=== PATIENT | female | born 1940 | race Caucasian/White ===

== ENCOUNTER 2019-08-21 09:26 | Emergency (ER) | payer MEDICARE, OTHER ==
[~2019-08-21] VITALS: Ht 170.2 cm; Wt 77.8 kg
[~2019-08-21 09:26] MED LIST: LIDO700A32 TOP
[2019-08-21] MEDS ORDERED: ondansetron/PF 4mg/2ml inj IV ONE (10:10)
[2019-08-21] MEDS ORDERED: normal saline 1000ML IV soln IVB ONE (10:10)
[2019-08-21 10:14] LABS: BASOPHILS % (AUTO) 0.6 % (0-1); EOSINOPHILS # (AUTO) 0.1 X10'3 (0-0.9); EOSINOPHILS % (AUTO) 3.2 % (0-6); HEMATOCRIT 45.1 % (35.0-45.0); HEMOGLOBIN 15.5 g/dl (12.0-16.0); LYMPHOCYTES # (AUTO) 0.9 X10'3 (1.1-4.8); LYMPHOCYTES % (AUTO) 23.9 % (21-51); MEAN CORPUSCULAR HEMOGLOBIN 33.7 PG (27.0-31.0); MEAN CORPUSCULAR HGB CONC 34.4 g/dL (33.0-36.5); MEAN CORPUSCULAR VOLUME 97.8 FL (78-98); MEAN PLATELET VOLUME 9.1 FL (7.4-10.4); MONOCYTES # (AUTO) 0.6 X10'3 (0-0.9); MONOCYTES % (AUTO) 15.5 % (2-12); NEUTROPHILS # (AUTO) 2.3 X10'3 (1.8-7.7); NEUTROPHILS % (AUTO) 56.8 % (42-75); PLATELET COUNT 148 X10'3 (140-440); RED BLOOD COUNT 4.61 X10'6 (4.20-5.60); RED CELL DISTRIBUTION WIDTH 13.4 % (11.5-14.5)
[2019-08-21 10:28] LABS: ALANINE AMINOTRANSFERASE 22 U/L (12-78); ALBUMIN/GLOBULIN RATIO 0.8 (1.1-1.5); ALKALINE PHOSPHATASE 96 IU/L (46-116); ANION GAP 8 (8-16); ASPARTATE AMINO TRANSFERASE 23 U/L (10-37); BLOOD UREA NITROGEN 8 MG/DL (7-18); BUN/CREATININE RATIO 8.8 (6.6-38.0); CALCIUM 8.7 MG/DL (8.5-10.1); CHLORIDE 107 MMOL/L (99-107); CREATININE 0.91 MG/DL (0.40-0.90); GLUCOSE 166 MG/DL (70-104); LIPASE 123 U/L (73-393); POTASSIUM 4.4 MMOL/L (3.5-5.1); SODIUM 143 MMOL/L (135-145); TOTAL CARBON DIOXIDE 27.9 MMOL/L (24-32); TOTAL PROTEIN 6.9 G/DL (6.4-8.2); eGFR 60 ML/MIN
[2019-08-21] MEDS ORDERED: LIDOcaine Viscous 15ml cup PO ONE (11:10)
[2019-08-21] MEDS ORDERED: mag hydrox/Alum hydrox/simeth 30ml oral suspension PO ONE (11:10)
[2019-08-21 11:47] VITALS: BP 133/67
[2019-08-21 12:20] LABS: ANISOCYTOSIS 1+; PLATELET ESTIMATE NORMAL; TOTAL CELLS COUNTED 100
[2019-08-21] MEDS ORDERED: ONDA4TAB12 PO (12:22)
[2019-08-21] MEDS ORDERED: OMEP40CA13 PO (12:23)
== END 2019-08-21 12:32 | disposition home or self-care (01) ==
LOC: ER 09:27
DX: R10.13 Epigastric pain (principal); R11.2 Nausea with vomiting, unspecified; Z88.6 Allergy status to analgesic agent; Z88.5 Allergy status to narcotic agent
CPT/HCPCS: 36415; 80053; 83690; 85025; 96361; 96374; 99284; J2405; J7030

== ENCOUNTER 2019-08-24 08:25 | Emergency (ER) | payer MEDICARE, OTHER ==
[~2019-08-24] VITALS: Ht 175.3 cm; Wt 90.0 kg
[~2019-08-24 08:25] MED LIST changes: -LIDO700A32 TOP; +OMEP40CA13 PO; +ONDA4TAB12 PO
[2019-08-24] MEDS ORDERED: mupirocin 2% ointment 22GM TP STA (08:49)
[2019-08-24] MEDS ORDERED: DOXY100C2 PO (09:10)
[2019-08-24] MEDS ORDERED: MUPI22OI30 TOP (09:10)
[2019-08-24 10:13] VITALS: BP 139/100
== END 2019-08-24 10:14 | disposition home or self-care (01) ==
LOC: ER 08:26
DX: E11.628 Type 2 diabetes mellitus with other skin complications (principal); L03.031 Cellulitis of right toe; Z60.2 Problems related to living alone; Z88.6 Allergy status to analgesic agent; Z88.1 Allergy status to other antibiotic agents; Z79.899 Other long term (current) drug therapy
CPT/HCPCS: 73660; 82948; 99284

== ENCOUNTER 2019-09-29 11:48 | Day surgery (SDC) | payer MEDICARE, OTHER ==
[2019-09-22 15:27] LABS: BASOPHILS # (AUTO) 0.1 X10'3 (0-0.2); EOSINOPHILS # (AUTO) 0.2 X10'3 (0-0.9); LYMPHOCYTES # (AUTO) 1.2 X10'3 (1.1-4.8); MEAN CORPUSCULAR HEMOGLOBIN 33.7 PG (27.0-31.0); MEAN CORPUSCULAR HGB CONC 34.4 g/dL (33.0-36.5); MEAN CORPUSCULAR VOLUME 97.8 FL (78-98); MEAN PLATELET VOLUME 9.6 FL (7.4-10.4); MONOCYTES # (AUTO) 0.9 X10'3 (0-0.9); MONOCYTES % (AUTO) 13.1 % (2-12); NEUTROPHILS # (AUTO) 4.3 X10'3 (1.8-7.7); NEUTROPHILS % (AUTO) 64.9 % (42-75); PRE OP HEMATOCRIT 44.1 % (35.0-45.0); PRE OP HEMOGLOBIN 15.2 g/dL (12.0-16.0); PRE OP PLATELET COUNT 199 X10'3 (140-440); RED BLOOD COUNT 4.51 X10'6 (4.20-5.60); RED CELL DISTRIBUTION WIDTH 14.2 % (11.5-14.5)
[2019-09-22 15:40] LABS: PRE OP PROTIME 17.5 SECONDS (9.0-12.0)
[2019-09-22 15:43] LABS: ALBUMIN 2.8 G/DL (3.4-5.0); ALBUMIN/GLOBULIN RATIO 0.8 (1.1-1.5); ALKALINE PHOSPHATASE 106 IU/L (46-116); BLOOD UREA NITROGEN 14 MG/DL (7-18); BUN/CREATININE RATIO 14.4 (6.6-38.0); CALCIUM 8.5 MG/DL (8.5-10.1); CHLORIDE 104 MMOL/L (99-107); CREATININE 0.97 MG/DL (0.40-0.90); PRE OP ALT 17 U/L (30-65); PRE OP ANION GAP 8 (8-16); PRE OP AST 27 U/L (10-37); PRE OP BILIRUB, TOTAL 0.8 MG/DL (0.0-1.0); PRE OP POTASSIUM 4.1 MMOL/L (3.4-5.1); PRE OP SODIUM 137 MMOL/L (135-145); TOTAL CARBON DIOXIDE 24.7 MMOL/L (24-32); TOTAL PROTEIN 6.5 G/DL (6.4-8.2); eGFR 56 ML/MIN
[2019-09-22 15:45] LABS: PRE OP GLUCOSE 260 MG/DL (70-104); PRE OP INR 1.8 INR
[~2019-09-29] VITALS: Ht 170.2 cm; Wt 77.7 kg
[2019-09-29] VITALS (8 sets, daily range): BP systolic 130–155; BP diastolic 70–96
[~2019-09-29 11:48] MED LIST changes: +ALPR-624 PO; +COU4T PO; +EXEN2PEN SQ; +GABA-530 PO; +LACT10SO PO; +LANTUS SQ; -OMEP40CA13 PO; -ONDA4TAB12 PO; +ONDA8TAB6 PO; +PANT-47 PO; +PROC-8 PO; +RIFA550T PO; +SPIR25TA5 PO; +TRAM50TA2 PO; +VORT20TA PO; +ceFOXitin 2 GM ADDVANTGE BAG 50 ML IV ONE; +famotidine 20mg tablet PO ONE; +ringers solution, lacted 1,000 ML IV SCH
[2019-09-29] MEDS ORDERED: LIDOcaine 1% 30ml preserv. free vial ONE (12:36)
[2019-09-29] MEDS ORDERED: BUPIVAcaine 0.5% inj/PF 30 ML ONE (12:36)
[2019-09-29] MEDS ORDERED: bacitracin 15gm ointment TP ONE (12:36)
[2019-09-29] MEDS ORDERED: ceFAZolin 1000mg inj ONE (12:36)
[2019-09-29] MEDS ORDERED: epiNEPHrine 1 mg/ml inj ONE (12:49)
[2019-09-29] MEDS ORDERED: sevoflurane 250ml liquid IH ONE (14:34)
[2019-09-29] MEDS ORDERED: fentaNYL/PF 50MCG/1 ML 2ML syringe ONE (14:39)
[2019-09-29] MEDS ORDERED: midazolam 2 mg/2 ml injection ONE (14:39)
[2019-09-29] MEDS ORDERED: propofol inj 20 ML IV ONE (15:49)
[2019-09-29] MEDS ORDERED: dexamethasone sod phosphate 4mg/ml inj. ONE (15:49)
[2019-09-29] MEDS ORDERED: rocuronium 10mg/ml inj IV ONE (15:49)
[2019-09-29] MEDS ORDERED: ondansetron/PF 4mg/2ml inj ONE (15:49)
[2019-09-29] MEDS ORDERED: glycopyrrolate 0.2mg/ml inj ONE (15:54)
[2019-09-29] MEDS ORDERED: neostigmine methylsulfate 1 MG/ML 10ml vial ONE (15:54)
[2019-09-29] MEDS ORDERED: HYDROcodone/acetaminophen 5mg/325mg tablet PO PRN (16:00)
--- NOTE | 2019-09-29 16:15 | NUR ---
ADMITTED TO PACU FROM OR ACCOMPANIED BY ANESTHESIA. INTIAL PHYSICAL ASSESSMENT DONE AND RECORDED. REPORT RECEIVED FROM ANESTHESIA.
[2019-09-29] MEDS ORDERED: traMADol 50MG tablet PO ONE (16:35)
[2019-09-29] MEDS ORDERED: ringers solution, lacted 1,000 ML IV SCH (16:46)
[2019-09-29] MEDS ORDERED: ondansetron/PF 4mg/2ml inj IV PRN (16:50)
[2019-09-29] MEDS ORDERED: HYDROmorphone inj. 0.5 MG/0.5 ML DISP.SYRIN IV PRN ×2 (16:50)
--- NOTE | 2019-09-29 17:30 | NUR ---
DISCHARGE CRITERIA MET, DISCHARGE INSTRUCTIONS GIVEN, DEMONSTRATES VERBAL UNDERSTANDING. DISCHARGED HOME IN GOOD CONDITION.
== END 2019-09-29 17:30 | disposition home or self-care (01) ==
LOC: PAS 11:48
PROVIDERS: ATTEND Specialist
DX: Z45.42 Encounter for adjustment and management of neurostimulator (principal); F32.9 Major depressive disorder, single episode, unspecified; F41.9 Anxiety disorder, unspecified; Z96.642 Presence of left artificial hip joint; Z96.651 Presence of right artificial knee joint; Z86.718 Personal history of other venous thrombosis and embolism; Z79.899 Other long term (current) drug therapy; Z79.01 Long term (current) use of anticoagulants; M54.81 Occipital neuralgia
CPT/HCPCS: 36415; 64585; 64595; 72170; 76000; 80053; 82948; 85025; 85610; 85730; 86885; 86900; 86901; J0171; J0690; J0694; J1100; J2001; J2250; J2405; J2704; J2710; J3010; J7120; A4215; A6250; A6258; A7000; J3490

== ENCOUNTER 2019-10-16 15:15 | Emergency (ER) | payer MEDICARE, OTHER ==
[~2019-10-16] VITALS: Ht 170.2 cm; Wt 72.7 kg
[~2019-10-16 15:15] MED LIST changes: -ceFOXitin 2 GM ADDVANTGE BAG 50 ML IV ONE; -famotidine 20mg tablet PO ONE; -ringers solution, lacted 1,000 ML IV SCH
[2019-10-16 17:39] LABS: BASOPHILS % (AUTO) 0.6 % (0-1); EOSINOPHILS # (AUTO) 0.2 X10'3 (0-0.9); EOSINOPHILS % (AUTO) 4.7 % (0-6); HEMOGLOBIN 14.7 g/dl (12.0-16.0); LYMPHOCYTES # (AUTO) 1.3 X10'3 (1.1-4.8); LYMPHOCYTES % (AUTO) 35.3 % (21-51); MEAN CORPUSCULAR HEMOGLOBIN 33.1 PG (27.0-31.0); MEAN CORPUSCULAR HGB CONC 33.5 g/dL (33.0-36.5); MEAN CORPUSCULAR VOLUME 98.8 FL (78-98); MEAN PLATELET VOLUME 9.5 FL (7.4-10.4); MONOCYTES # (AUTO) 0.4 X10'3 (0-0.9); NEUTROPHILS # (AUTO) 1.7 X10'3 (1.8-7.7); NEUTROPHILS % (AUTO) 48.4 % (42-75); PLATELET COUNT 109 X10'3 (140-440); RED BLOOD COUNT 4.45 X10'6 (4.20-5.60); RED CELL DISTRIBUTION WIDTH 13.6 % (11.5-14.5); WHITE BLOOD COUNT 3.6 X10'3 (4.5-11.0)
[2019-10-16 17:40] LABS: ALANINE AMINOTRANSFERASE 21 U/L (12-78); ALBUMIN 2.6 G/DL (3.4-5.0); ALBUMIN/GLOBULIN RATIO 0.7 (1.1-1.5); ALKALINE PHOSPHATASE 102 IU/L (46-116); ANION GAP 3 (8-16); ASPARTATE AMINO TRANSFERASE 27 U/L (10-37); BILIRUBIN,TOTAL 0.5 MG/DL (0.1-1.0); BLOOD UREA NITROGEN 5 MG/DL (7-18); BUN/CREATININE RATIO 5.3 (6.6-38.0); CALCIUM 8.3 MG/DL (8.5-10.1); CHLORIDE 106 MMOL/L (99-107); CREATININE 0.95 MG/DL (0.40-0.90); GLUCOSE 166 MG/DL (70-104); SODIUM 140 MMOL/L (135-145); TOTAL CARBON DIOXIDE 31.3 MMOL/L (24-32); TOTAL PROTEIN 6.1 G/DL (6.4-8.2); eGFR 57 ML/MIN
[2019-10-16 18:15] VITALS: BP 136/98
== END 2019-10-16 18:23 | disposition home or self-care (01) ==
LOC: ER 15:16
DX: B34.9 Viral infection, unspecified (principal); R05 Cough; R07.1 Chest pain on breathing; R11.2 Nausea with vomiting, unspecified; E11.9 Type 2 diabetes mellitus without complications; Z88.2 Allergy status to sulfonamides; Z88.1 Allergy status to other antibiotic agents; Z88.5 Allergy status to narcotic agent; Z88.8 Allergy status to other drugs, medicaments and biological substances; Z79.4 Long term (current) use of insulin; Z79.01 Long term (current) use of anticoagulants; Z79.899 Other long term (current) drug therapy
CPT/HCPCS: 36415; 71045; 80053; 83605; 85025; 87040; 99284